=== PATIENT | female | born 1985 | race American Indian/Alaskan Native ===

== ENCOUNTER 2017-01-26 10:36 | Emergency (ER) | payer SELFPAY ==
[2017-01-26 10:55] VITALS: BP 111/71
--- NOTE | 2017-01-26 15:58 | Emergency Department Report ---
HPI - General Chief Complaint: Allergic Reaction Time Seen by Provider: 01/26/17 15:34 ED Past Medical Hx - Past Medical History Previous Medical History?: Yes Hx Hypertension: No Hx Diabetes: Yes - Surgical History Past Surgical History?: Yes Additional Surgical History: c section 2013 - Social History Smoking Status: Heavy Tobacco Smoker Substance Use Type: None - Medications Home Medications: Home Medications Medication Instructions Recorded Confirmed Last Taken Type Doxycycline [Vibramycin CAP] 100 mg PO BID #14 capsule 12/29/13 Unknown Rx traMADol [Ultram 50 MG tab] 50 mg PO Q6HR PRN #14 tablet 12/29/13 Unknown Rx Gentamicin 0.3% Ophth Soln 2 drops OP Q4H #1 bottle 07/08/14 Unknown Rx HYDROcodone/APAP 5-325 [[place] 1 each PO Q6HR PRN #10 tablet 07/08/14 Unknown Rx 5-325 mg TAB] Amoxicillin [Trimox CAP] 500 mg PO Q8H #30 capsule 09/23/14 Unknown Rx Fluconazole [Diflucan] 150 mg PO ONCE #1 tablet 09/23/14 Unknown Rx HYDROcodone/APAP 5-325 [[place] 1 each PO Q6HR PRN #16 tablet 09/23/14 Unknown Rx 5/325] Sulfamethoxazole/Trimethoprim 1 each PO Q12H #20 tablet 09/23/14 Unknown Rx [Bactrim Ds] ALBUTEROL Inhaler [ProAir HFA 2 puff IH QID PRN #1 inhalation 01/26/17 Unknown Rx Inhaler] Benzocaine/Menthol [Cepacol Sore 1 each MM Q4H PRN #1 lozenge 01/26/17 Unknown Rx Throat Lozenge] Naproxen [Naprosyn TAB] 500 mg PO BID PRN #25 tablet 01/26/17 Unknown Rx Phenylephrine/Dm/Acetaminop/GG 10 ml PO Q4H PRN #1 bottle 01/26/17 Unknown Rx [Mucinex Fzme-Hml-Gwlbqsrkuq Lq] ED Review of Systems ROS: Stated complaint: ALLERGIC REACTION Other details as noted in HPI Physical Exam - Physical Exam Vital Signs: Vital Signs 01/26/17 10:49 Temperature 98.6 F Pulse Rate 60 Respiratory 18 Rate Blood Pressure 111/71 O2 Sat by Pulse 100 Oximetry ED Course Vital Signs 01/26/17 10:49 Temperature 98.6 F Pulse Rate 60 Respiratory 18 Rate Blood Pressure 111/71 O2 Sat by Pulse 100 Oximetry Critical care attestation.: If time is entered above; I have spent that time in minutes in the direct care of this critically ill patient, excluding procedure time. ED Disposition Clinical Impression: Sore throat Disposition: DC-01 TO HOME OR SELFCARE Is pt being admited?: No Does the pt Need Aspirin: No Condition: Stable Instructions: Pharyngitis (ED), Cold Symptoms (ED) Prescriptions: ALBUTEROL Inhaler [ProAir HFA Inhaler] 2 puff IH QID PRN #1 inhalation PRN Reason: Shortness Of Breath Benzocaine/Menthol [Cepacol Sore Throat Lozenge] 1 each MM Q4H PRN #1 lozenge PRN Reason: Sore Throat Naproxen [Naprosyn TAB] 500 mg PO BID PRN #25 tablet PRN Reason: Sore Throat Phenylephrine/Dm/Acetaminop/GG [Mucinex Qtdy-Ipg-Jyoogdewyr Lq] 10 ml PO Q4H PRN #1 bottle PRN Reason: Cough Referrals: [facility] [Outside] - 3-5 Days [facility] [Outside] - 3-5 Days Forms: Work/School Release Form(ED) Time of Disposition: 15:57
== END 2017-01-26 16:16 | disposition home or self-care (01) ==
LOC: ED 10:36
DX: J02.9 Acute pharyngitis, unspecified (principal); E11.9 Type 2 diabetes mellitus without complications; F17.210 Nicotine dependence, cigarettes, uncomplicated
CPT/HCPCS: 99282

== ENCOUNTER 2018-10-05 08:55 | Emergency (ER) | payer OTHER ==
[2018-10-05 09:30] LABS: Basophils % (Auto) 0.6 % (0.0-1.8); Eosinophils # (Auto) 0.1 K/mm3 (0.0-0.4); Eosinophils % (Auto) 1.9 % (0.0-4.3); Hematocrit 34.4 % (30.3-42.9); Hemoglobin 11.6 gm/dl (10.1-14.3); Lymphocytes # (Auto) 1.8 K/mm3 (1.2-5.4); Lymphocytes % (Auto) 33.1 % (13.4-35.0); Mean Corpuscular HGB Conc 34 % (30-34); Mean Corpuscular Volume 94 fl (79-97); Monocytes # (Auto) 0.3 K/mm3 (0.0-0.8); Monocytes % (Auto) 5.7 % (0.0-7.3); Platelet Count 231 K/mm3 (140-440); Red Blood Count 3.65 M/mm3 (3.65-5.03); Red Cell Distribution Width 13.9 % (13.2-15.2)
[2018-10-05 09:47] LABS: Bacteria,Urine 1+ /HPF (Negative); Bilirubin,Urine NEG (Negative); Blood,Urine SM (Negative); Color,Urine Yellow (Yellow); Mucus,Urine 3+ /HPF; Protein,Urine <15 mg/dL mg/dL (Negative); Urobilinogen,Urine < 2.0 mg/dL (<2.0)
--- NOTE | 2018-10-05 09:53 | Emergency Department Report ---
ED N/V/D HPI - General Chief complaint: Nausea/Vomiting/Diarrhea Stated complaint: VOMIT/DIZZY/ TEST Time Seen by Provider: 10/05/18 09:42 Source: patient Mode of arrival: Ambulatory Limitations: No Limitations - History of Present Illness Initial comments: 33-year-old -[place] female comes in stating that she wants to know if she is . Patient reports she's had a negative test at home. Patient reports that she feels like she can be because she's having nausea and intermittent cramps. Patient states that feels like she wants to come on her. But she has not come on. Her last menstrual period was sometime in July 2018. She is 2 para 2. Not any fever or chills. She does admit to vomiting in the morning when she tries to have a cup of coffee. -: days(s) (4) Associated Abdominal Pain: No Quality: cramping Consistency: intermittent Worsens with: none - Related Data Previous Rx's Medication Instructions Recorded Last Taken Type DOXYCYCLINE Hyclate [Vibramycin 100 mg PO BID #14 capsule 12/29/13 Unknown Rx CAP] traMADol [Ultram 50 MG tab] 50 mg PO Q6HR PRN #14 tablet 12/29/13 Unknown Rx Gentamicin 0.3% Ophth Soln 2 drops OP Q4H #1 bottle 07/08/14 Unknown Rx HYDROcodone/APAP 5-325 [[place] 1 each PO Q6HR PRN #10 tablet 07/08/14 Unknown Rx 5-325 mg TAB] Amoxicillin [Trimox CAP] 500 mg PO Q8H #30 capsule 09/23/14 Unknown Rx Fluconazole [Diflucan] 150 mg PO ONCE #1 tablet 09/23/14 Unknown Rx HYDROcodone/APAP 5-325 [[place] 1 each PO Q6HR PRN #16 tablet 09/23/14 Unknown Rx 5/325] Sulfamethoxazole/Trimethoprim 1 each PO Q12H #20 tablet 09/23/14 Unknown Rx [Bactrim Ds] ALBUTEROL Inhaler (OR & NICU) 2 puff IH QID PRN #1 inhalation 01/26/17 Unknown Rx [ProAir HFA Inhaler] Benzocaine/Menthol [Cepacol Sore 1 each MM Q4H PRN #1 lozenge 01/26/17 Unknown Rx Throat Lozenge] Naproxen [Naprosyn TAB] 500 mg PO BID PRN #25 tablet 01/26/17 Unknown Rx Phenylephrine/Dm/Acetaminop/GG 10 ml PO Q4H PRN #1 bottle 01/26/17 Unknown Rx [Mucinex Ewsr-Plx-Wctxddytto Lq] Allergies Allergy/AdvReac Type Severity Reaction Status Date / Time No Known Allergies Allergy Verified 08/16/13 03:13 ED Review of Systems ROS: Stated complaint: VOMIT/DIZZY/ TEST Other details as noted in HPI ED Past Medical Hx - Past Medical History Hx Hypertension: No Hx Diabetes: Yes - Surgical History Additional Surgical History: c section 2012 - Social History Smoking Status: Heavy Tobacco Smoker Substance Use Type: None - Medications Home Medications: Home Medications Medication Instructions Recorded Confirmed Last Taken Type DOXYCYCLINE Hyclate [Vibramycin 100 mg PO BID #14 capsule 12/29/13 Unknown Rx CAP] traMADol [Ultram 50 MG tab] 50 mg PO Q6HR PRN #14 tablet 12/29/13 Unknown Rx Gentamicin 0.3% Ophth Soln 2 drops OP Q4H #1 bottle 07/08/14 Unknown Rx HYDROcodone/APAP 5-325 [[place] 1 each PO Q6HR PRN #10 tablet 07/08/14 Unknown Rx 5-325 mg TAB] Amoxicillin [Trimox CAP] 500 mg PO Q8H #30 capsule 09/23/14 Unknown Rx Fluconazole [Diflucan] 150 mg PO ONCE #1 tablet 09/23/14 Unknown Rx HYDROcodone/APAP 5-325 [[place] 1 each PO Q6HR PRN #16 tablet 09/23/14 Unknown Rx 5/325] Sulfamethoxazole/Trimethoprim 1 each PO Q12H #20 tablet 09/23/14 Unknown Rx [Bactrim Ds] ALBUTEROL Inhaler (OR & NICU) 2 puff IH QID PRN #1 inhalation 01/26/17 Unknown Rx [ProAir HFA Inhaler] Benzocaine/Menthol [Cepacol Sore 1 each MM Q4H PRN #1 lozenge 01/26/17 Unknown Rx Throat Lozenge] Naproxen [Naprosyn TAB] 500 mg PO BID PRN #25 tablet 01/26/17 Unknown Rx Phenylephrine/Dm/Acetaminop/GG 10 ml PO Q4H PRN #1 bottle 01/26/17 Unknown Rx [Mucinex Pacq-Cgo-Cbfhroogxp Lq] ED Physical Exam - General Limitations: No Limitations General appearance: alert, in no apparent distress - Head Head exam: Present: atraumatic, normocephalic - Eye Eye exam: Present: normal appearance - ENT ENT exam: Present: mucous membranes moist - Neck Neck exam: Present: normal inspection - Respiratory Respiratory exam: Present: normal lung sounds bilaterally. Absent: respiratory distress - Cardiovascular Cardiovascular Exam: Present: regular rate, normal rhythm. Absent: systolic murmur, diastolic murmur, rubs, gallop - GI/Abdominal GI/Abdominal exam: Present: soft, normal bowel sounds - Extremities Exam Extremities exam: Present: normal inspection - Back Exam Back exam: Present: normal inspection - Neurological Exam Neurological exam: Present: alert, oriented X3 - Psychiatric Psychiatric exam: Present: normal affect, normal mood - Skin Skin exam: Present: warm, dry, intact, normal color. Absent: rash ED Medical Decision Making - Lab Data Result diagrams: 10/05/18 09:12 - Medical Decision Making 33-year-old -[place] female comes in basically wanting a test. test was negative. Discussed the patient all other labs were negative. Patient verbalized understanding no other questions or complaints. Discussed with patient she should follow up with primary care provider or OB provider. Critical care attestation.: If time is entered above; I have spent that time in minutes in the direct care of this critically ill patient, excluding procedure time. ED Disposition Clinical Impression: Negative test Disposition: DC-01 TO HOME OR SELFCARE Is pt being admited?: No Does the pt Need Aspirin: No Condition: Stable Additional Instructions: Your test is negative. Follow-up at her primary care provider or your OB provider. Referrals: ELGIN VALDEZ MD [Primary Care Provider] - 3-5 Days [facility] [Provider Group] - 3-5 Days
[2018-10-05 09:57] VITALS: BP 115/73
[2018-10-05 09:58] LABS: HCG Qualitative,Urine Negative (Negative)
[2018-10-05 10:17] LABS: Alanine Aminotransferase 10 units/L (7-56); Albumin 3.9 g/dL (3.9-5); BUN/Creatinine Ratio 25; Blood Urea Nitrogen 15 mg/dL (7-17); Calcium 8.7 mg/dL (8.4-10.2); Hemolysis Index 10
== END 2018-10-05 10:23 | disposition home or self-care (01) ==
LOC: ED 08:55
DX: R11.2 Nausea with vomiting, unspecified (principal); R42 Dizziness and giddiness; I10 Essential (primary) hypertension; E11.9 Type 2 diabetes mellitus without complications; F17.200 Nicotine dependence, unspecified, uncomplicated
CPT/HCPCS: 36415; 80053; 81001; 81025; 85025

== ENCOUNTER 2019-06-30 12:30 | Emergency (ER) | payer MEDICAID, OTHER ==
[2019-06-30 12:37] VITALS: BP 128/87
--- NOTE | 2019-06-30 12:59 | Emergency Department Report ---
Minor Respiratory - HPI Chief Complaint: Upper Respiratory Infection Stated Complaint: FLU SX Time Seen by Provider: 06/30/19 12:52 Duration: 3 weeks Pain Location: Facial, Chest Severity: mild Minor Respiratory: Yes Rhinorrhea, Yes Able to Tolerate Fluids, Yes Cough, Yes Fever, No Sore Throat, No Sick Contacts, No Hemoptysis, No Chest Pain, No Shortness of Breath Other History: Tre is a 33 yo female with hx of tobacco abuse who presents with cough, nasal congestion, headache for 3 weeks. Body pain ED Review of Systems ROS: Stated complaint: FLU SX Other details as noted in HPI Constitutional: fever, malaise ENT: throat pain, congestion Respiratory: cough. denies: shortness of breath Cardiovascular: denies: chest pain Neurological: headache ED Past Medical Hx - Past Medical History Previous Medical History?: Yes Hx Hypertension: No Hx Diabetes: Yes Additional medical history: Pneumonia - Surgical History Past Surgical History?: Yes Additional Surgical History: c section 2013 - Social History Smoking Status: Current Every Day Smoker Substance Use Type: Alcohol, Marijuana - Medications Home Medications: Home Medications Medication Instructions Recorded Confirmed Last Taken Type DOXYCYCLINE Hyclate [Vibramycin 100 mg PO BID #14 capsule 12/29/13 Unknown Rx CAP] traMADoL [Ultram 50 MG tab] 50 mg PO Q6HR PRN #14 tablet 12/29/13 Unknown Rx Gentamicin 0.3% Ophth Soln 2 drops OP Q4H #1 bottle 07/08/14 Unknown Rx HYDROcodone/APAP 5-325 [[place] 1 each PO Q6HR PRN #10 tablet 07/08/14 Unknown Rx 5-325 mg TAB] Amoxicillin [Trimox CAP] 500 mg PO Q8H #30 capsule 09/23/14 Unknown Rx Fluconazole [Diflucan] 150 mg PO ONCE #1 tablet 09/23/14 Unknown Rx HYDROcodone/APAP 5-325 [[place] 1 each PO Q6HR PRN #16 tablet 09/23/14 Unknown Rx 5/325] Sulfamethoxazole/Trimethoprim 1 each PO Q12H #20 tablet 09/23/14 Unknown Rx [Bactrim Ds] Albuterol INH(or & Nicu Only) 2 puff IH QID PRN #1 inhalation 01/26/17 Unknown Rx [ProAir HFA Inhaler] Benzocaine/Menthol [Cepacol Sore 1 each MM Q4H PRN #1 lozenge 01/26/17 Unknown Rx Throat Lozenge] Naproxen [Naprosyn TAB] 500 mg PO BID PRN #25 tablet 01/26/17 Unknown Rx Phenylephrine/Dm/Acetaminop/GG 10 ml PO Q4H PRN #1 bottle 01/26/17 Unknown Rx [Mucinex Idxg-Zsh-Neerasxlux Lq] DOXYCYCLINE Hyclate [Vibramycin 100 mg PO Q12HR 7 Days #14 capsule 06/30/19 Unknown Rx CAP] Ibuprofen [Motrin 800 MG tab] 800 mg PO Q8HR PRN #15 tablet 06/30/19 Unknown Rx Minor Respiratory Exam - Exam General: Vital signs noted. No distress. Alert and acting appropriately. HEENT: Yes Moist Mucous Membranes, No Pharyngeal Erythema, No Pharyngeal Exudates, No Rhinorrhea Ear: Neither TM Bulge, Neither TM Erythema Neck: Yes Supple, No Adenopathy Lungs: Yes Good Air Exchange, No Wheezes, No Ronchi, No Stridor, No Cough, No Labored Respirations, No Retractions, No Use of Accessory Muscles, No Other Abnormal Lung Sounds Heart: Yes Regular, No Murmur Abdomen: Yes Normal Bowel Sounds, No Tenderness, No Peritoneal Signs Skin: No Rash, No Edema Neurologic: Alert and oriented, no deficits. Musculoskeletal: Unremarkable. ED Course Vital Signs 06/30/19 06/30/19 12:34 12:49 Temperature 98 F Pulse Rate 127 H 77 Respiratory 20 16 Rate Blood Pressure 128/87 O2 Sat by Pulse 93 100 Oximetry ED Medical Decision Making - Medical Decision Making Vital Signs - 24 hr 06/30/19 06/30/19 12:34 12:49 Temperature 98 F Pulse Rate 127 H 77 Respiratory 20 16 Rate Blood Pressure 128/87 O2 Sat by Pulse 93 100 Oximetry acute bronchitis rx: doxycycline Critical care attestation.: If time is entered above; I have spent that time in minutes in the direct care of this critically ill patient, excluding procedure time. ED Disposition Clinical Impression: Acute bronchitis Disposition: DC-01 TO HOME OR SELFCARE Is pt being admited?: No Does the pt Need Aspirin: No Condition: Stable Instructions: Acute Bronchitis (ED) Prescriptions: Ibuprofen [Motrin 800 MG tab] 800 mg PO Q8HR PRN #15 tablet PRN Reason: Pain , Severe (7-10) DOXYCYCLINE Hyclate [Vibramycin CAP] 100 mg PO Q12HR 7 Days #14 capsule Referrals: LIZBETH FOX MD [Staff Physician] - 3-5 Days
== END 2019-06-30 13:34 | disposition home or self-care (01) ==
LOC: ED 12:30
DX: J20.9 Acute bronchitis, unspecified (principal); E11.9 Type 2 diabetes mellitus without complications; F17.200 Nicotine dependence, unspecified, uncomplicated; F12.20 Cannabis dependence, uncomplicated; Z79.1 Long term (current) use of non-steroidal anti-inflammatories (NSAID); Z79.899 Other long term (current) drug therapy; Z98.890 Other specified postprocedural states
CPT/HCPCS: 99282

== ENCOUNTER 2019-07-04 08:34 | Emergency (ER) | payer OTHER ==
[2019-07-04 08:41] VITALS: BP 116/70
--- NOTE | 2019-07-04 10:07 | Emergency Department Report ---
ED Chest Pain HPI - General Chief Complaint: Upper Respiratory Infection Stated Complaint: CHEST PAIN Time Seen by Provider: 07/04/19 09:53 Source: patient Mode of arrival: Ambulatory Limitations: No Limitations - History of Present Illness Initial Comments: This is a pleasant 33-year-old female presents the emergency department the chief complaint of chest pain over the past 2 weeks. Patient reports she just got over the flu. States the pain is aggravated with movement specifically movement of the left arm. 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 She describes it as a constant dull pain. She denies any shortness of breath, cough, congestion, hemoptysis, fever, chills, night sweats, lower extremity edema, pleuritic pain, dizziness, syncope, presyncope, nausea, vomiting, diarrhea or any other associated symptoms. She denies any specific injuries. Pain is rated as a 4 out of 10 in severity and only a ggravated with movement. She denies any personal history of hypertension, diabetes, hyperlipidemia, thromboembolic disease. She denies any smoking history. She denies any current medication use or known allergies to medications. She denies any family history of sudden cardiac or early cardiac disease. She denies any oral contraceptive use. MD Complaint: chest pain Severity: mild - Related Data Previous Rx's Medication Instructions Recorded Last Taken Type DOXYCYCLINE Hyclate [Vibramycin 100 mg PO BID #14 capsule 12/29/13 Unknown Rx CAP] traMADoL [Ultram 50 MG tab] 50 mg PO Q6HR PRN #14 tablet 12/29/13 Unknown Rx Gentamicin 0.3% Ophth Soln 2 drops OP Q4H #1 bottle 07/08/14 Unknown Rx HYDROcodone/APAP 5-325 [[place] 1 each PO Q6HR PRN #10 tablet 07/08/14 Unknown Rx 5-325 mg TAB] Amoxicillin [Trimox CAP] 500 mg PO Q8H #30 capsule 09/23/14 Unknown Rx Fluconazole [Diflucan] 150 mg PO ONCE #1 tablet 09/23/14 Unknown Rx HYDROcodone/APAP 5-325 [[place] 1 each PO Q6HR PRN #16 tablet 09/23/14 Unknown Rx 5/325] Sulfamethoxazole/Trimethoprim 1 each PO Q12H #20 tablet 09/23/14 Unknown Rx [Bactrim Ds] Albuterol INH(or & Nicu Only) 2 puff IH QID PRN #1 inhalation 01/26/17 Unknown Rx [ProAir HFA Inhaler] Benzocaine/Menthol [Cepacol Sore 1 each MM Q4H PRN #1 lozenge 01/26/17 Unknown Rx Throat Lozenge] Naproxen [Naprosyn TAB] 500 mg PO BID PRN #25 tablet 01/26/17 Unknown Rx Phenylephrine/Dm/Acetaminop/GG 10 ml PO Q4H PRN #1 bottle 01/26/17 Unknown Rx [Mucinex Czwq-Etl-Mrjjwugzih Lq] DOXYCYCLINE Hyclate [Vibramycin 100 mg PO Q12HR 7 Days #14 capsule 06/30/19 Unknown Rx CAP] Ibuprofen [Motrin 800 MG tab] 800 mg PO Q8HR PRN #15 tablet 06/30/19 Unknown Rx Naproxen [Naprosyn TAB] 500 mg PO BID #20 tablet 07/04/19 Unknown Rx Allergies Allergy/AdvReac Type Severity Reaction Status Date / Time No Known Allergies Allergy Verified 08/16/13 03:13 Heart Score - HEART Score History: Slightly suspicious EKG: Normal Age: < 45 Risk factors: No known risk factors Troponin: < normal limit HEART Score: 0 ED Review of Systems ROS: Stated complaint: CHEST PAIN Other details as noted in HPI Comment: All other systems reviewed and negative Constitutional: denies: chills, fever Eyes: denies: eye pain, eye discharge, vision change ENT: denies: ear pain, throat pain Respiratory: denies: cough, shortness of breath, wheezing Cardiovascular: as per HPI, chest pain. denies: palpitations Endocrine: no symptoms reported Gastrointestinal: denies: abdominal pain, nausea, diarrhea Genitourinary: denies: urgency, dysuria, discharge Musculoskeletal: denies: back pain, joint swelling, arthralgia Skin: denies: rash, lesions Neurological: denies: headache, weakness, paresthesias Psychiatric: denies: anxiety, depression Hematological/Lymphatic: denies: easy bleeding, easy bruising ED Past Medical Hx - Past Medical History Previous Medical History?: Yes Hx Hypertension: No Hx Diabetes: Yes Additional medical history: Pneumonia - Surgical History Past Surgical History?: Yes Additional Surgical History: c section 2012 - Family History Family history: no significant - Social History Smoking Status: Current Every Day Smoker Substance Use Type: None - Medications Home Medications: Home Medications Medication Instructions Recorded Confirmed Last Taken Type DOXYCYCLINE Hyclate [Vibramycin 100 mg PO BID #14 capsule 12/29/13 Unknown Rx CAP] traMADoL [Ultram 50 MG tab] 50 mg PO Q6HR PRN #14 tablet 12/29/13 Unknown Rx Gentamicin 0.3% Ophth Soln 2 drops OP Q4H #1 bottle 07/08/14 Unknown Rx HYDROcodone/APAP 5-325 [[place] 1 each PO Q6HR PRN #10 tablet 07/08/14 Unknown Rx 5-325 mg TAB] Amoxicillin [Trimox CAP] 500 mg PO Q8H #30 capsule 09/23/14 Unknown Rx Fluconazole [Diflucan] 150 mg PO ONCE #1 tablet 09/23/14 Unknown Rx HYDROcodone/APAP 5-325 [[place] 1 each PO Q6HR PRN #16 tablet 09/23/14 Unknown Rx 5/325] Sulfamethoxazole/Trimethoprim 1 each PO Q12H #20 tablet 09/23/14 Unknown Rx [Bactrim Ds] Albuterol INH(or & Nicu Only) 2 puff IH QID PRN #1 inhalation 01/26/17 Unknown Rx [ProAir HFA Inhaler] Benzocaine/Menthol [Cepacol Sore 1 each MM Q4H PRN #1 lozenge 01/26/17 Unknown Rx Throat Lozenge] Naproxen [Naprosyn TAB] 500 mg PO BID PRN #25 tablet 01/26/17 Unknown Rx Phenylephrine/Dm/Acetaminop/GG 10 ml PO Q4H PRN #1 bottle 01/26/17 Unknown Rx [Mucinex Shej-Otc-Kzxxhyhxye Lq] DOXYCYCLINE Hyclate [Vibramycin 100 mg PO Q12HR 7 Days #14 capsule 06/30/19 Unknown Rx CAP] Ibuprofen [Motrin 800 MG tab] 800 mg PO Q8HR PRN #15 tablet 06/30/19 Unknown Rx Naproxen [Naprosyn TAB] 500 mg PO BID #20 tablet 07/04/19 Unknown Rx ED Physical Exam - General Limitations: No Limitations General appearance: alert, in no apparent distress - Head Head exam: Present: atraumatic, normocephalic - Eye Eye exam: Present: normal appearance, PERRL Pupils: Present: normal accommodation - ENT ENT exam: Present: normal exam, normal orophraynx, mucous membranes moist - Neck Neck exam: Present: normal inspection, full ROM. Absent: tenderness, meningismus - Respiratory Respiratory exam: Present: normal lung sounds bilaterally, chest wall tenderness (TTP over anterior chest wall. normal equal bilateral pulses. ). Absent: respiratory distress, wheezes, rales, rhonchi, stridor - Cardiovascular Cardiovascular Exam: Present: regular rate, normal rhythm. Absent: systolic murmur, diastolic murmur, rubs, gallop - GI/Abdominal GI/Abdominal exam: Present: soft, normal bowel sounds. Absent: distended, tenderness, guarding, rebound, rigid - Extremities Exam Extremities exam: Present: normal inspection, full ROM, tenderness (TTP over left anterior shoulder and left upper back. TTP over left trapezius muscle ), normal capillary refill. Absent: calf tenderness (negative mona sign bilaterally ) - Back Exam Back exam: Present: normal inspection, full ROM. Absent: tenderness, CVA tenderness (R), CVA tenderness (L), muscle spasm - Neurological Exam Neurological exam: Present: alert, oriented X3, normal gait - Psychiatric Psychiatric exam: Present: normal affect, normal mood - Skin Skin exam: Present: warm, dry, intact, normal color. Absent: rash ED Course Vital Signs 07/04/19 08:39 Temperature 98.7 F Pulse Rate 74 Respiratory 18 Rate Blood Pressure 116/70 O2 Sat by Pulse 100 Oximetry ED Medical Decision Making - EKG Data -: EKG Interpreted by Me (Seen by ER MD) EKG shows normal: sinus rhythm Rate: normal - EKG Data When compared to previous EKG there are: previous EKG unavailable 07/04/19 11:[address] or T wave abnormalities, no STEMI, normal axis, normal intervals, - Medical Decision Making Patient is PERC negative and low risk by Wells criteria for PE making this unlikely. EKG was unremarkable making atypical ACS unlikely. Patient had reproducible chest wall tenderness and pain with movement of the left arm make me feel that this is much more musculoskeletal. I did consider pneumothorax and pneumonia however with normal breath sounds bilaterally with no wheezes, rhonchi, crackles or any fever or cough I suspect this is unlikely. Also considered an aortic dissection however is no tearing or ripping pain to the back and normal equal radial pulses bilaterally suspect this is unlikely. Patient will be given anti-inflammatories and recommended outpatient follow-up with her primary care doctor. Return to the emergency department any changing or worsening symptoms. She verbalized understanding of the diagnosis, treatment plan and follow-up instructions all of her questions were answered. - Differential Diagnosis chest wall pain, ACS, PE Critical care attestation.: If time is entered above; I have spent that time in minutes in the direct care of this critically ill patient, excluding procedure time. ED Disposition Clinical Impression: Acute chest wall pain Disposition: DC- TO HOME OR SELFCARE Is pt being admited?: No Condition: Stable Instructions: Chest Pain (ED) Prescriptions: Naproxen [Naprosyn TAB] 500 mg PO BID #20 tablet Forms: Work/School Release Form(ED) Time of Disposition: 11:05
== END 2019-07-04 11:20 | disposition home or self-care (01) ==
LOC: ED 08:34
DX: R07.89 Other chest pain (principal); E11.9 Type 2 diabetes mellitus without complications; F17.200 Nicotine dependence, unspecified, uncomplicated; Z98.890 Other specified postprocedural states; Z79.899 Other long term (current) drug therapy
CPT/HCPCS: 93005; 93010; 99282